=== PATIENT | male | born 1985 | race American Indian/Alaskan Native ===

== ENCOUNTER 2018-09-12 14:59 | Emergency (ER) | payer OTHER ==
--- NOTE | 2018-09-12 15:18 | Emergency Department Report ---
Blank Doc - Documentation Documentation: This is a 33-year-old female that presents with URI symptoms. This initial assessment/diagnostic orders/clinical plan/treatment(s) is/are subject to change based on patient's health status, clinical progression and re- assessment by fellow clinical providers in the ED. Further treatment and workup at subsequent clinical providers discretion. Patient/guardians urged not to elope from the ED as their condition may be serious if not clinically assessed and managed. Initial orders include: 1- Patient sent to [facility] for further evaluation and treatment 2- CXR
[2018-09-12 15:25] VITALS: BP 134/78
--- NOTE | 2018-09-12 16:19 | XRay Report ---
PROCEDURE: XR CHEST ROUTINE 2V TECHNIQUE: Chest radiograph, frontal lateral views. HISTORY: cough COMPARISONS: None currently available. FINDINGS: Cardiac silhouette is within normal limits. There is no effusion. There is no pneumothorax. There is no consolidation. There are no suspicious osseous lesions. IMPRESSION: * No acute cardiopulmonary findings. This document is electronically signed by Tyrell Vaughn MD., September 12 2018 04:17:00 PM ET
--- NOTE | 2018-09-12 16:50 | Emergency Department Report ---
Minor Respiratory - HPI Chief Complaint: Upper Respiratory Infection Stated Complaint: POSS RESPIRATORY INFECTION Time Seen by Provider: 09/12/18 15:02 Duration: greater than one week Pain Location: Chest Severity: mild Minor Respiratory: Yes Able to Tolerate Fluids, Yes Cough, No Rhinorrhea, No Sore Throat, No Sick Contacts, No Hemoptysis, No Chest Pain, No Shortness of Breath, No Fever Other History: Mr. Latham is a very pleasant healthy 33 yo gentleman who presents with cough for greater than one week. He had flu like symptoms of fever body aches last week which have resolved. He feels fluid in his lungs. He smokes tobacco and marijuana. He does also vape. ED Review of Systems ROS: Stated complaint: POSS RESPIRATORY INFECTION Other details as noted in HPI Constitutional: denies: fever, malaise Respiratory: cough. denies: shortness of breath, wheezing Cardiovascular: denies: palpitations Gastrointestinal: denies: abdominal pain, nausea, vomiting Neurological: denies: headache ED Past Medical Hx - Past Medical History Previous Medical History?: No - Surgical History Past Surgical History?: No - Social History Smoking Status: Never Smoker Substance Use Type: None - Medications Home Medications: Home Medications Medication Instructions Recorded Confirmed Last Taken Type Doxycycline Hyclate [Doxycycline 100 mg PO Q12HR 7 Days #14 tab 09/12/18 Unknown Rx Hyclate TAB] Minor Respiratory Exam - Exam General: Vital signs noted. No distress. Alert and acting appropriately. Very pleasant, talkative, no acute distress. Frequent harsh cough HEENT: Yes Moist Mucous Membranes, No Pharyngeal Erythema, No Pharyngeal Exudates, No Rhinorrhea, No Conjuctival Injection, No Frontal Tenderness, No Maxillary Tenderness Neck: Yes Supple, No Adenopathy Lungs: Yes Good Air Exchange, No Wheezes, No Ronchi, No Stridor, No Cough, No Labored Respirations, No Retractions, No Use of Accessory Muscles, No Other Abnormal Lung Sounds Heart: Yes Regular, No Murmur Abdomen: Yes Normal Bowel Sounds, No Tenderness, No Peritoneal Signs Skin: No Rash, No Edema Neurologic: Alert and oriented, no deficits. Musculoskeletal: Unremarkable. ED Course Vital Signs 09/12/18 15:23 Temperature 98.8 F Pulse Rate 88 Respiratory 16 Rate Blood Pressure 134/78 [Left] O2 Sat by Pulse 97 Oximetry ED Medical Decision Making - Radiology Data Radiology results: report reviewed Chest x-ray 2 view: No acute process according to radiology report - Medical Decision Making Mrs. Latham presents with acute bronchitis: Antibiotics are indicated due to tobacco use. Prescribed doxycycline. Critical care attestation.: If time is entered above; I have spent that time in minutes in the direct care of this critically ill patient, excluding procedure time. ED Disposition Clinical Impression: Acute bronchitis Disposition: DC-01 TO HOME OR SELFCARE Is pt being admited?: No Does the pt Need Aspirin: No Condition: Stable Instructions: Acute Bronchitis (ED) Prescriptions: Doxycycline Hyclate [Doxycycline Hyclate TAB] 100 mg PO Q12HR 7 Days #14 tab Referrals: UMAIR TORRE DO [Staff Physician] - 3-5 Days
== END 2018-09-12 16:56 | disposition home or self-care (01) ==
LOC: ED 14:59
DX: J20.9 Acute bronchitis, unspecified (principal); Z88.6 Allergy status to analgesic agent
CPT/HCPCS: 71046